=== PATIENT | female | born 1965 | race Caucasian/White ===

== ENCOUNTER 2020-10-13 10:11 | Emergency (ER) | payer MEDICAID, OTHER ==
[~2020-10-13] VITALS: Ht 162.5 cm; Wt 99.0 kg
[2020-10-13] MEDS ORDERED: fentaNYL INJ 100 MCG/2 ML AMP IVP ONE (11:00)
[2020-10-13] MEDS ORDERED: ONDANSETRON 4 MG/2 ML (SDV) Z0FRAN IVP ONE (11:00)
[2020-10-13] MEDS ORDERED: NS IV 1000 ML 1,000 ML IV SCH (11:00)
[2020-10-13 11:01] LABS: BILIRUBIN,URINE NEGATIVE (NEGATIVE); CLARITY,URINE CLEAR; COLOR,URINE YELLOW; GLUCOSE, URINE (UA) 3+ (NEGATIVE); KETONES,URINE NEGATIVE (NEGATIVE); LEUKOCYTE ESTERASE ,URINE NEGATIVE (NEGATIVE); NITRITE,URINE NEGATIVE (NEGATIVE); PROTEIN,URINE NEGATIVE (NEGATIVE)
[2020-10-13 11:02] LABS: BASOPHILS # (AUTO) 0.1 10^3/uL (0.0-0.1); BASOPHILS % (AUTO) 1 % (0-10); EOSINOPHILS # (AUTO) 0.2 10^3/uL (0.0-0.3); EOSINOPHILS % (AUTO) 3 % (0-10); HEMATOCRIT 43 % (35-52); HEMOGLOBIN 13.6 g/dL (11.5-16.0); LYMPHOCYTES # (AUTO) 1.1 10^3/uL (1.0-4.0); LYMPHOCYTES % (AUTO) 17 % (12-44); MEAN CORPUSCULAR HEMOGLOBIN 27 pg (25-34); MEAN CORPUSCULAR HGB CONC 32 g/dL (32-36); MEAN CORPUSCULAR VOLUME 86 fL (80-99); MEAN PLATELET VOLUME 11.1 fL (9.0-12.2); MONOCYTES # (AUTO) 0.4 10^3/uL (0.0-1.0); MONOCYTES % (AUTO) 6 % (0-12); NEUTROPHILS # (AUTO) 4.4 10^3/uL (1.8-7.8); NEUTROPHILS % (AUTO) 72 % (42-75); PLATELET COUNT 273 10^3/uL (130-400); WHITE BLOOD COUNT 6.2 10^3/uL (4.3-11.0)
[2020-10-13 11:08] LABS: BACTERIA,URINE NEGATIVE /HPF; RBC,URINE RARE /HPF; SQUAMOUS EPITHELIAL CELL,UR 0-2 /HPF
[2020-10-13 11:14] LABS: ALBUMIN 3.8 GM/DL (3.2-4.5); CHLORIDE 97 MMOL/L (98-107); POTASSIUM 3.7 MMOL/L (3.6-5.0); SODIUM 132 MMOL/L (135-145)
[2020-10-13 11:16] LABS: AMPHETAMINE SCREEN, URINE NEGATIVE (NEGATIVE); BARBITURATE SCREEN URINE NEGATIVE (NEGATIVE); BENZODIAZEPINES SCREEN URINE NEGATIVE (NEGATIVE); CANNABINOID SCREEN, URINE NEGATIVE (NEGATIVE); COCAINE SCREEN URINE NEGATIVE (NEGATIVE); METHADONE STAT NEGATIVE (NEGATIVE); METHAMPHETAMINE SCREEN URINE S NEGATIVE (NEGATIVE); OPIATE SCREEN URINE NEGATIVE (NEGATIVE); OXYCODONE STAT NEGATIVE (NEGATIVE); PROPOXYPHENE STAT NEGATIVE (NEGATIVE); TRICYCLIC ANTIDEPRESSANTS SCRE NEGATIVE (NEGATIVE)
[2020-10-13 11:17] LABS: TOTAL PROTEIN 7.4 GM/DL (6.4-8.2)
[2020-10-13 11:18] LABS: BILIRUBIN,TOTAL 0.6 MG/DL (0.1-1.0); CARBON DIOXIDE 22 MMOL/L (21-32)
--- NOTE | 2020-10-13 11:19 | Diagnostic Imaging Report ---
INDICATION: Fall with left wrist pain. TIME OF EXAM: 11:06 AM Three views left wrist were obtained. Distal radius and ulna are intact. Carpus appears intact. Metacarpals are unremarkable. No fractures are seen. IMPRESSION: No acute bony abnormality is detected. Dictated by: Dictated on workstation # [id number]
[2020-10-13 11:20] LABS: ALKALINE PHOSPHATASE 302 U/L (40-136); GFR ESTIMATED 52
[2020-10-13 11:21] LABS: BUN/CREATININE RATIO 11
[2020-10-13 11:23] LABS: ALANINE AMINOTRANSFERASE 39 U/L (0-55); MAGNESIUM 1.9 MG/DL (1.6-2.4)
[2020-10-13 11:27] LABS: GLUCOSE 557 MG/DL (70-105)
--- NOTE | 2020-10-13 12:19 | Diagnostic Imaging Report ---
CLINICAL INDICATION: Patient fell and hit head on left posterior aspect. Patient has pain where she hit her head and along the left side of neck. EXAM: Head CT without IV contrast with sagittal and coronal reformations. Axial CT scan of the cervical spine with sagittal and coronal reformations. Auto Exposure Controls were utilized during the CT exam to meet ALARA standards for radiation dose reduction. COMPARISON: MRI of the brain performed without and with IV contrast dated 05/24/2020. Head CT without contrast dated 05/22/2020. CT scan of the cervical spine dated 01/28/2019. FINDINGS: Head CT: There is no evidence of acute cerebral infarct, intracranial hemorrhage, or gross mass effect. The brain parenchymal volume appears appropriate for patient's age. There is normal landry-white matter distinction. There is no significant midline shift or herniation. There is no evidence of hydrocephalus. The basal cisterns are unremarkable. There is a small area of extracranial soft tissue swelling involving the left posterior aspect of the head. There is no skull fracture. The skull, extracranial soft tissue, and orbits are unremarkable. The paranasal sinuses are unremarkable. There is moderate consolidation involving the right mastoid air cells with sclerosis. Cervical spine: Patient body habitus causes streak artifact obscuring portions of the lower cervical spine. There is no acute cervical spine fracture or dislocation. There is straightening of the cervical spine posture. Stable small chronic calcification adjacent to the left C7 uncinate process superiorly. There is no significant bony central canal narrowing. There is at least [id number] bilateral C6-C7 neural foramen narrowing. IMPRESSION: 1: There is no evidence of intracranial hemorrhage. There is no skull fracture. There is a small area of extracranial soft tissue swelling involving the left posterior aspect of the head likely related to patient's injury. 2: Cervical spine degenerative disease with no acute fracture or dislocation. Dictated by: Dictated on workstation # [id number]
--- NOTE | 2020-10-13 12:33 | ED Fall/Injury ---
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 GIVES POOR PMH REPORTS NEW TO THE AREA Source: patient Exam Limitations: no limitations History of Present Illness Date Seen by Provider: Oct 13, 2020 Time Seen by Provider: 10:30 Initial Comments This 55-year-old patient presents to the emergency room after having a fall getting up off the couch. She remembers feeling lightheaded prior to. She fell backwards striking the base of her head on the TV. She reports loss of consciousness. She is a diabetic who uses multiple doses of insulin daily. She does not check her blood sugars because she does not have a glucometer machine. She has a swollen contusion on the base of posterior left base of her scalp. She has some minor pain in the left wrist. She denies any other injuries. She denies any chest pain or prior episodes of lightheadedness. It is unclear whether she had a syncopal episode and fell or if she fell and struck her head resulting in a concussion with amnesia. Occurred: just prior to arrival Allergies and Home Medications Allergies Coded Allergies: Penicillins (Verified Allergy, Unknown, 10/13/20) iodine (Verified Allergy, Unknown, 10/13/20) Patient Home Medication List Home Medication List Reviewed: Yes Review of Systems Review of Systems Constitutional: no symptoms reported Eyes: No Symptoms Reported Ears, Nose, Mouth, Throat: no symptoms reported Respiratory: no symptoms reported Cardiovascular: see HPI, syncope Gastrointestinal: no symptoms reported Genitourinary: no symptoms reported Musculoskeletal: see HPI Skin: no symptoms reported Psychiatric/Neurological: See HPI Past Nqchvev-Ptmvlv-Ryruqz Hx Past Med/Social Hx: Reviewed Nursing Past Med/Soc Hx Patient Social History Alcohol Use: Denies Use Smoking Status: Never a Smoker Recent Infectious Disease Expo: No Past Medical History Surgeries: Yes Coronary Stent, Gallbladder Respiratory: No Cardiac: Yes (STENT x2) Coronary Artery Disease, High Cholesterol, Hypertension Neurological: No Genitourinary: No Gastrointestinal: No Musculoskeletal: No Endocrine: No HEENT: No Cancer: No Psychosocial: No Physical Exam Vital Signs Vital Signs - First Documented 10/13/20 10:15 Temp 36.3 Pulse 76 Resp 18 B/P (MAP) 150/89 (109) Pulse Ox 96 Capillary Refill : Less Than 3 Seconds Height, Weight, BMI Height: '" Weight: lbs. oz. kg; 37.00 BMI Method: General Appearance: WD/WN, no apparent distress HEENT: PERRL/EOMI, other (Tender, swollen contusion on the left base of her posterior scalp) Neck: normal inspection, tender midline (Over C1-C2 region) Cardiovascular: regular rate, rhythm, no edema, no murmur Respiratory: lungs clear, normal breath sounds, no respiratory distress, no a ccessory muscle use Gastrointestinal: normal bowel sounds, non tender, soft Extremities: no pedal edema, other (Minor tenderness in the left wrist and minor pain with range of motion) Neurologic/Psychiatric: color buffer II-XII nml as tested, no motor/sensory deficits, alert, normal mood/affect, oriented x 3 Skin: normal color, warm/dry Kristie Coma Score Best Eye Response: (4) Open Spontaneously Best Verbal Response: (5) Oriented Best Motor Response: (6) Obeys Commands [place] Total: 15 Progress/Results/Core Measures Results/Orders Lab Results Laboratory Tests Test 10/13/20 10:45 10/13/20 10:53 10/13/20 10:55 10/13/20 12:52 Range/Units Glucometer 414 *H 390 H 70-110 MG/DL White Blood Count 6.2 4.3-11.0 10^3/uL Red Blood Count 5.00 3.80-5.11 10^6/uL Hemoglobin 13.6 11.5-16.0 g/dL Hematocrit 43 35-52 % Mean Corpuscular Volume 86 80-99 fL Mean Corpuscular Hemoglobin 27 25-34 pg Mean Corpuscular Hemoglobin Concent 32 32-36 g/dL Red Cell Distribution Width 14.6 H 10.0-14.5 % Platelet Count 273 130-400 10^3/uL Mean Platelet Volume 11.1 9.0-12.2 fL Immature Granulocyte % (Auto) 1 % Neutrophils (%) (Auto) 72 42-75 % Lymphocytes (%) (Auto) 17 12-44 % Monocytes (%) (Auto) 6 0-12 % Eosinophils (%) (Auto) 3 0-10 % Basophils (%) (Auto) 1 0-10 % Neutrophils # (Auto) 4.4 1.8-7.8 10^3/uL Lymphocytes # (Auto) 1.1 1.0-4.0 10^3/uL Monocytes # (Auto) 0.4 0.0-1.0 10^3/uL Eosinophils # (Auto) 0.2 0.0-0.3 10^3/uL Basophils # (Auto) 0.1 0.0-0.1 10^3/uL Immature Granulocyte # (Auto) 0.0 0.0-0.1 10^3/uL Sodium Level 132 L 135-145 MMOL/L Potassium Level 3.7 3.6-5.0 MMOL/L Chloride Level 97 L 98-107 MMOL/L Carbon Dioxide Level 22 21-32 MMOL/L Anion Gap 13 5-14 MMOL/L Blood Urea Nitrogen 12 7-18 MG/DL Creatinine 1.10 0.60-1.30 MG/DL Estimat Glomerular Filtration Rate 52 BUN/Creatinine Ratio 11 Glucose Level 557 *H 70-105 MG/DL Calcium Level 9.0 8.5-10.1 MG/DL Corrected Calcium 9.2 8.5-10.1 MG/DL Magnesium Level 1.9 1.6-2.4 MG/DL Total Bilirubin 0.6 0.1-1.0 MG/DL Aspartate Amino Transf (AST/SGOT) 36 H 5-34 U/L Alanine Aminotransferase (ALT/SGPT) 39 0-55 U/L Alkaline Phosphatase 302 H 40-136 U/L Troponin I < 0.028 <0.028 NG/ML Total Protein 7.4 6.4-8.2 GM/DL Albumin 3.8 3.2-4.5 GM/DL Serum Alcohol < 10 <10 MG/DL Urine Color YELLOW Urine Clarity CLEAR Urine pH 6.0 5-9 Urine Specific [place] <=1.005 1.016-1.022 Urine Protein NEGATIVE NEGATIVE Urine Glucose (UA) 3+ H NEGATIVE Urine Ketones NEGATIVE NEGATIVE Urine Nitrite NEGATIVE NEGATIVE Urine Bilirubin NEGATIVE NEGATIVE Urine Urobilinogen 0.2 < = 1.0 MG/DL Urine Leukocyte Esterase NEGATIVE NEGATIVE Urine RBC (Auto) TRACE-I NEGATIVE Urine RBC RARE /HPF Urine WBC NONE /HPF Urine Squamous Epithelial Cells 0-2 /HPF Urine Crystals NONE /LPF Urine Bacteria NEGATIVE /HPF Urine Casts NONE /LPF Urine Mucus NEGATIVE /LPF Urine Culture Indicated NO Urine Opiates Screen NEGATIVE NEGATIVE Urine Oxycodone Screen NEGATIVE NEGATIVE Urine Methadone Screen NEGATIVE NEGATIVE Urine Propoxyphene Screen NEGATIVE NEGATIVE Urine Barbiturates Screen NEGATIVE NEGATIVE Ur Tricyclic Antidepressants Screen NEGATIVE NEGATIVE Urine Phencyclidine Screen NEGATIVE NEGATIVE Urine Amphetamines Screen NEGATIVE NEGATIVE Urine Methamphetamines Screen NEGATIVE NEGATIVE Urine Benzodiazepines Screen NEGATIVE NEGATIVE Urine Cocaine Screen NEGATIVE NEGATIVE Urine Cannabinoids Screen NEGATIVE NEGATIVE Test 10/13/20 13:00 Range/Units Troponin I < 0.028 <0.028 NG/ML My Orders Orders - KYLE WALDEN MD Accucheck Stat ONCE (10/13/20 10:40) Cbc With Automated Diff (10/13/20 10:40) Comprehensive Metabolic Panel (10/13/20 10:40) Magnesium (10/13/20 10:40) Troponin I (10/13/20 10:40) Ua Culture If Indicated (10/13/20 10:40) Ed Iv/Invasive Line Start (10/13/20 10:40) Ekg Tracing (10/13/20 10:40) Monitor-Rhythm Ecg Trace Only (10/13/20 10:40) Ct Head/Cervical Spine Wo (10/13/20 10:40) Wrist, Left, 3 Views Or More (10/13/20 10:40) Alcohol (10/13/20 10:42) Drug Screen Stat (Urine) (10/13/20 10:42) Ondansetron Injection (Zofran Injectio (10/13/20 11:00) Fentanyl Inj (Sublimaze Injection) (10/13/20 11:00) Ns Iv 1000 Ml (Sodium Chloride 0.9%) (10/13/20 11:00) Accucheck Stat ONCE (10/13/20 12:12) Ekg Tracing (10/13/20 12:48) Troponin I (10/13/20 13:00) Medications Given in ED Current Medications Medications Dose Ordered Sig/Yeni Route Start Time Stop Time Status Last Admin Dose Admin Fentanyl Citrate 25 mcg ONCE ONCE IVP 10/13/20 11:00 10/13/20 11:01 DC 10/13/20 11:12 25 MCG Ondansetron HCl 8 mg ONCE ONCE IVP 10/13/20 11:00 10/13/20 11:01 DC 10/13/20 11:11 8 MG Vital Signs/I&O 10/13/20 10:15 Temp 36.3 Pulse 76 Resp 18 B/P (MAP) 150/89 (109) Pulse Ox 96 Blood Pressure Mean: 109 FSBG Bedside Testing Finger Stick Blood Glucose: 414 Progress Progress Note : Time: 13:46 Progress Note Blood sugar is trending down after fluids. Patient will continue using insulin at home. A small dose of fentanyl was given for initial pain. She now claims to be pain-free. CT of the head and cervical spine revealed no serious injuries. C-collar was cleared. Repeat troponin and EKG demonstrated no adverse changes. Initial ECG Impression Date: Oct 13, 2020 Initial ECG Impression Time: 12:29 Initial ECG Rate: 1049 Initial ECG Rhythm: Normal Sinus Comment Sinus rhythm with subtle ST changes. No diagnostic ST elevation or depression. No STEMI. No abnormal intervals or significant axis deviation. EKG : EKG Time: 12:55 Rate: 63 Rhythm: Normal Sinus Comment Sinus rhythm with very subtle ST changes, nondiagnostic. QTc 586. No axis deviation. Diagnostic Imaging Diagonstic Imaging: CT Plain Films/CT/US/NM/MRI: head Comments CT head and cervical spine viewed by me and report reviewed. See report below: NAME: CRYSTAL CLARK [facility] REC#: [id number] PT STATUS: REG ER : 1965 PHYSICIAN: KYLE WALDEN MD ADMIT DATE: 10/13/20/ER Draft Date of Exam:10/13/20 CT HEAD/CERVICAL SPINE WO CLINICAL INDICATION: Patient fell and hit head on left posterior aspect. Patient has pain where she hit her head and along the left side of neck. EXAM: Head CT without IV contrast with sagittal and coronal reformations. Axial CT scan of the cervical spine with sagittal and coronal reformations. Auto Exposure Controls were utilized during the CT exam to meet ALARA standards for radiation dose reduction. COMPARISON: MRI of the brain performed without and with IV contrast dated 05/24/2020. Head CT without contrast dated 05/22/2020. CT scan of the cervical spine dated 01/28/2019. FINDINGS: Head CT: There is no evidence of acute cerebral infarct, intracranial hemorrhage, or gross mass effect. The brain parenchymal volume appears appropriate for patient's age. There is normal landry-white matter distinction. There is no significant midline shift or herniation. There is no evidence of hydrocephalus. The basal cisterns are unremarkable. There is a small area of extracranial soft tissue swelling involving the left posterior aspect of the head. There is no skull fracture. The skull, extracranial soft tissue, and orbits are unremarkable. The paranasal sinuses are unremarkable. There is moderate consolidation involving the right mastoid air cells with sclerosis. Cervical spine: Patient body habitus causes streak artifact obscuring portions of the lower cervical spine. There is no acute cervical spine fracture or dislocation. There is straightening of the cervical spine posture. Stable small chronic calcification adjacent to the left C7 uncinate process superiorly. There is no significant bony central canal narrowing. There is at least [id number] bilateral C6-C7 neural foramen narrowing. IMPRESSION: 1: There is no evidence of intracranial hemorrhage. There is no skull fracture. There is a small area of extracranial soft tissue swelling involving the left posterior aspect of the head likely related to patient's injury. 2: Cervical spine degenerative disease with no acute fracture or dislocation. Dictated on workstation # [id number] Dict: 10/13/20 1206 Trans: 10/13/20 1219 [facility] [id number] Interpreted by: NAVEED SANCHEZ MD Diagonstic Imaging: Xray Plain Films/CT/US/NM/MRI: other (Left wrist) Comments Left wrist x-ray viewed by me and report reviewed. See report below: NAME: CRYSTAL CLARK [facility] REC#: [id number] PT STATUS: REG ER : 1965 PHYSICIAN: KYLE WALDEN MD ADMIT DATE: 10/13/20/ER Draft Date of Exam:10/13/20 WRIST, LEFT, 3 VIEWS OR MORE INDICATION: Fall with left wrist pain. TIME OF EXAM: 11:06 AM Three views left wrist were obtained. Distal radius and ulna are intact. Carpus appears intact. Metacarpals are unremarkable. No fractures are seen. IMPRESSION: No acute bony abnormality is detected. Dictated on workstation # [id number] Dict: 10/13/20 1117 Trans: 10/13/20 1119 [facility] [id number] Interpreted by: VENKATA VALDIVIA MD Departure Impression Primary Impression: Syncope Qualified Codes: R55 - Syncope and collapse Additional Impressions: Fall on same level Qualified Codes: W18.30XA - Fall on same level, unspecified, initial encounter Scalp contusion Qualified Codes: S00.03XA - Contusion of scalp, initial encounter Hyperglycemia Disposition: 01 HOME, SELF-CARE Condition: Improved Departure-Patient Inst. Decision time for Depature: 13:46 Referrals: LILLY WARD MD, ALI MD [facility] DESTINY RIZO MD, BASHAR J MD NO,LOCAL PHYSICIAN (PCP) Primary Care Physician ORLANDO RAMOS MD Patient Instructions: Blood Glucose Monitoring, Syncope (Fainting) (DC) Add. Discharge Instructions: Drink plenty of water to stay well-hydrated. Discontinue drinking sugared beverages. Eat a low carbohydrate, low sugar diet. Check your blood sugars fasting in the morning when you wake up and 2 hours after each meal. If you have persistently high blood sugars over 200, increase your mealtime insulin to 6 or 7 units. Follow-up with a primary care provider soon as possible. Please start calling for an appointment today. A list of local doctors is provided below. You may have experienced a concussion. Please avoid any activities that would predispose you to further head injury such as use of heights like ladders, bicycle riding, horseback riding, etc. for at least 7 days. Call with questions or concerns. Return to the emergency room if you have worsening symptoms. All discharge instructions reviewed with patient and/or family. Voiced understanding. KYLE WALDEN MD Oct 13, 2020 12:33
[2020-10-13 14:01] VITALS: BP 130/95
== END 2020-10-13 13:59 | disposition home or self-care (01) ==
LOC: ER 10:13
DX: S00.03XA Contusion of scalp, initial encounter (principal); R55 Syncope and collapse; R73.9 Hyperglycemia, unspecified; I10 Essential (primary) hypertension; Z95.5 Presence of coronary angioplasty implant and graft; Z88.0 Allergy status to penicillin; Z91.041 Radiographic dye allergy status; W18.30XA Fall on same level, unspecified, initial encounter
CPT/HCPCS: 70450; 72125; 73110; 80053; 80306; 81000; 82962; 83735; 84484; 85025; 93005; 99284; G0480; 36415; 80320